=== PATIENT | male | born 1990 | race American Indian/Alaskan Native ===

== ENCOUNTER 2016-07-27 23:19 | Emergency (ER) | payer OTHER ==
[2016-07-27 23:31] VITALS: BP 129/85
--- NOTE | 2016-07-28 00:06 | Emergency Department Report ---
HPI - General Chief Complaint: Dental/Oral Time Seen by Provider: 07/28/16 00:05 - HPI HPI: Patient here complaining of pain to lower gums 3 days. She denies any fever or chills. Denies any injury to gum. He said he noticed redness and swelling to his gum. ED Past Medical Hx - Past Medical History Previous Medical History?: No - Surgical History Past Surgical History?: No - Family History Family history: no significant - Social History Smoking Status: Former Smoker Substance Use Type: None - Medications Home Medications: Home Medications Medication Instructions Recorded Confirmed Last Taken Type Ciprofloxacin HCl [Cipro] 500 mg PO Q12H #14 tab 06/13/[address] [Voltaren Dr] 75 mg PO Q12H #20 tablet 06/13/14 Unknown Rx HYDROcodone/APAP 5-325 [Ramsay 1 each PO Q6HR PRN #12 tablet 06/13/14 Unknown Rx 5-325 mg TAB] Acetaminophen/Codeine [Tylenol #3] 1 tab PO Q6H PRN #12 tab 07/28/16 Unknown Rx Amoxicillin [Amoxicillin TAB] 875 mg PO BID #20 tablet 07/28/16 Unknown Rx ED Review of Systems ROS: Stated complaint: MOUTH PAIN Other details as noted in HPI Comment: All other systems reviewed and negative Constitutional: denies: chills, fever ENT: dental pain (gum pain). denies: ear pain, throat pain, congestion Respiratory: no symptoms reported Cardiovascular: denies: chest pain, palpitations, edema, syncope Gastrointestinal: denies: abdominal pain, nausea, vomiting, diarrhea Musculoskeletal: denies: back pain, arthralgia Skin: denies: rash Neurological: denies: headache Physical Exam - Physical Exam Vital Signs: Vital Signs 07/27/16 23:29 Temperature 97.5 F L Pulse Rate 57 L Respiratory 18 Rate Blood Pressure 129/85 O2 Sat by Pulse 99 Oximetry General: This is a 26-year-old male well-nourished well-developed in no acute distress. Physical Exam: Head: Normocephalic atraumatic Mouth: Moist, no pharyngeal exudate or erythema. Uvula is midline and oral airway is patent. Positive gingival enlargement and dental tenderness around tooth #20 3/24/25 and 26. Oral hygiene and multiple dental caries. No abscess noted. No facial swelling. No peritonsillar abscesses. Neck: Supple, no C-spine tenderness, no tracheal deviation. Nontender to palpate. no adenopathy Ears: Bilateral TMs pearly garcia.bilateral EAC without any redness swelling or drainage Eyes: Bilateral pupils equal and reactive to light, bilateral EOM intact. Bilateral sclera and conjunctiva without injection. Normal accommodation Nose: Mucosa moist, normal mucosa .maxillary and frontal sinus non-tender to palpate. Lungs: Clear to auscultate bilaterally no rhonchi wheezes or rales. Normal work of breathing extremity; No CCE. +2 pulses. No neurovascular compromise Cardiovascular: S1-S2, regular rate rhythm. No murmurs. Skin: clean Dry and intact no rash no lesions Psych: Normal mood and behavior ED Course Vital Signs 07/27/16 23:29 Temperature 97.5 F L Pulse Rate 57 L Respiratory 18 Rate Blood Pressure 129/85 O2 Sat by Pulse 99 Oximetry - Reevaluation(s) Reevaluation #1: 07/28/16 00:30 Uneventful ED stay ED Medical Decision Making - Medical Decision Making ED course: I discussed with patient that he has inflammation of his gum which is called gingivitis. Aggressive him that it provided that he follow-up with a dentist as this can become worst. I instructed patient to follow up with dentist refer to discharge instruction paperwork. Also discussed with him treatment plan and he voiced understanding. Condition discharged home with prescription for Tylenol No. 3 and amoxicillin. Critical care attestation.: If time is entered above; I have spent that time in minutes in the direct care of this critically ill patient, excluding procedure time. ED Disposition Clinical Impression: Gingivitis, Dental caries, Mouth pain Disposition: DISCHARGED TO HOME OR SELFCARE Is pt being admited?: No Does the pt Need Aspirin: No Condition: Stable Instructions: Gingivitis (ED), Dental Caries (ED) Additional Instructions: Follow-up with dentist that we'll refer to. Please Use mouth wash and floss on a daily basis. He is taking antibiotics as prescribed. Tylenol 3 will cause drowsiness so please do not operate any heavy machinery or drive motor vehicle while on Tylenol #3 Prescriptions: Acetaminophen/Codeine [Tylenol #3] 1 tab PO Q6H PRN #12 tab PRN Reason: Pain Amoxicillin [Amoxicillin TAB] 875 mg PO BID #20 tablet Referrals: [facility] [Outside] - 07/30/16 Forms: Accompanied Note, Work/School Release Form(ED)
== END 2016-07-28 00:45 | disposition home or self-care (01) ==
LOC: ED 07-28 00:18
DX: K05.10 Chronic gingivitis, plaque induced (principal); K02.9 Dental caries, unspecified; K13.79 Other lesions of oral mucosa; Z87.891 Personal history of nicotine dependence
CPT/HCPCS: 99282

== ENCOUNTER 2018-03-04 06:15 | Emergency (ER) | payer OTHER ==
[2018-03-04 06:31] VITALS: BP 143/94
--- NOTE | 2018-03-04 07:17 | Cat Scan Report ---
FINAL REPORT PROCEDURE: CT HEAD/BRAIN WO CON TECHNIQUE: Computerized tomography of the head was performed without contrast material. HISTORY: headache COMPARISON: No prior studies are available for comparison. FINDINGS: Skull and scalp: Normal. Paranasal sinuses: Normal. Ventricles and subarachnoid spaces: Normal. Cerebrum: No evidence of hemorrhage, acute infarction or mass . Cerebellum and brainstem: No evidence of hemorrhage, acute infarction or mass. Vasculature: Normal. Comments: None. IMPRESSION: Normal Examination
--- NOTE | 2018-03-04 08:32 | Emergency Department Report ---
ED Headache HPI - General Chief Complaint: Headache Stated Complaint: HEADACHE Time Seen by Provider: 03/04/18 08:02 Source: patient Exam Limitations: no limitations - History of Present Illness Initial Comments: This is a 27-year-old -[place] male who presents with headache for 8-9 days. Patient states she is feeling pressure at times in os Cipro area or frontal area. He took Tylenol once with no improvement of symptoms. Patient states now he is hearing ringing in both ears and pain. She denies nausea or vomiting or fever. He admits he was sick a few weeks ago but does not believe he caught anything from her. Patient denies chest pain, shortness of breath, visual changes, and vertigo. Timing/Duration: 1 week Quality: constant, throbbing Head Injury Location: frontal, occipital Recent Head Trauma: no recent headache/trauma Associated Symptoms: other (tendinitis and bilateral ear pain) Allergies/Adverse Reactions: Allergies No Known Allergies Allergy (Verified 06/12/14 22:27) Home Medications: Ambulatory Orders Ciprofloxacin HCl [Cipro] 500 mg PO Q12H #14 tab 06/13/[address] [Voltaren Dr] 75 mg PO Q12H #20 tablet 06/13/14 HYDROcodone/APAP 5-325 [Goshen 5-325 mg TAB] 1 each PO Q6HR PRN #12 tablet Acetaminophen/Codeine [Tylenol #3] 1 tab PO Q6H PRN #12 tab 07/28/16 Amoxicillin [Amoxicillin TAB] 875 mg PO BID #20 tablet 07/28/16 Amoxicillin 500 mg PO BID #20 capsule 03/04/18 Ibuprofen [Motrin 800 MG tab] 800 mg PO Q8HR PRN #15 tablet 03/04/18 ED Review of Systems ROS: Stated complaint: HEADACHE Other details as noted in HPI Constitutional: denies: chills, fever ENT: ear pain (bilateral ear pain with tinnitus), congestion. denies: throat pain, dental pain, hearing loss, epistaxis Respiratory: denies: cough, shortness of breath, wheezing Cardiovascular: denies: chest pain, palpitations Gastrointestinal: denies: abdominal pain, nausea, diarrhea Skin: denies: rash, lesions Neurological: headache. denies: weakness, paresthesias Psychiatric: denies: anxiety, depression ED Past Medical Hx - Past Medical History Previous Medical History?: No - Surgical History Past Surgical History?: No - Social History Smoking Status: Current Every Day Smoker Substance Use Type: Marijuana - Medications Home Medications: Home Medications Medication Instructions Recorded Confirmed Last Taken Type Ciprofloxacin HCl [Cipro] 500 mg PO Q12H #14 tab 06/13/[address] [Voltaren Dr] 75 mg PO Q12H #20 tablet 06/13/14 Unknown Rx HYDROcodone/APAP 5-325 [[place] 1 each PO Q6HR PRN #12 tablet 06/13/14 Unknown Rx 5-325 mg TAB] Acetaminophen/Codeine [Tylenol #3] 1 tab PO Q6H PRN #12 tab 07/28/16 Unknown Rx Amoxicillin [Amoxicillin TAB] 875 mg PO BID #20 tablet 07/28/16 Unknown Rx Amoxicillin 500 mg PO BID #20 capsule 03/04/18 Unknown Rx Ibuprofen [Motrin 800 MG tab] 800 mg PO Q8HR PRN #15 tablet 03/04/18 Unknown Rx ED Physical Exam - General Limitations: No Limitations General appearance: alert, in no apparent distress - ENT ENT exam: Present: mucous membranes moist, other (turbinates are mildly congested with clear discharge). Absent: normal orophraynx (erythematous posterior pharynx), TM's normal bilaterally (erythematous, bulging right TM, non -mobile, tender) - Respiratory Respiratory exam: Present: normal lung sounds bilaterally. Absent: respiratory distress - Cardiovascular Cardiovascular Exam: Present: regular rate, normal rhythm. Absent: systolic murmur, diastolic murmur, rubs, gallop - GI/Abdominal GI/Abdominal exam: Present: soft, normal bowel sounds - Neurological Exam Neurological exam: Present: alert, oriented X3 - Psychiatric Psychiatric exam: Present: normal affect, normal mood - Skin Skin exam: Present: warm, dry, intact, normal color. Absent: rash ED Course Vital Signs 03/04/18 06:23 Temperature 98.3 F Pulse Rate 62 Respiratory 16 Rate Blood Pressure 143/94 O2 Sat by Pulse 100 Oximetry ED Medical Decision Making - Radiology Data Radiology results: report reviewed, image reviewed interpreted by me: FINAL REPORT PROCEDURE: CT HEAD/BRAIN WO CON TECHNIQUE: Computerized tomography of the head was performed without contrast material. HISTORY: headache COMPARISON: No prior studies are available for comparison. FINDINGS: Skull and scalp: Normal. Paranasal sinuses: Normal. Ventricles and subarachnoid spaces: Normal. Cerebrum: No evidence of hemorrhage, acute infarction or mass . Cerebellum and brainstem: No evidence of hemorrhage, acute infarction or mass. Vasculature: Normal. Comments: None. IMPRESSION: Normal Examination - Medical Decision Making Patient is stable and was examined by me. Vitals normal. CT of head without contrast obtained and dictated by radiologist. Physical assessment susceptible of serous otitis media of left ear. Start amoxicillin and ibuprofen for pain. Discussed plan with patient who agreed with plan. Discharged home in stable condition. Follow up with PCP in 24-72 hours. Critical care attestation.: If time is entered above; I have spent that time in minutes in the direct care of this critically ill patient, excluding procedure time. ED Disposition Clinical Impression: Tinnitus of both ears, Otalgia of both ears Migraine headache without aura Qualifiers: Status migrainosus presence: with status migrainosus Intractability: not intractable Qualified Code(s): G43.001 - Migraine without aura, not intractable , with status migrainosus Otitis media of left ear Qualifiers: Otitis media type: suppurative Chronicity: acute Recurrence: not specified as recurrent Spontaneous tympanic membrane rupture: without spontaneous rupture Qualified Code(s): H66.002 - Acute suppurative otitis media without spontaneous rupture of ear drum, left ear Disposition: DC- TO HOME OR SELFCARE Is pt being admited?: No Does the pt Need Aspirin: No Condition: Stable Instructions: Otitis Media (ED), Migraine Headache (ED) Additional Instructions: Give tylenol or ibuprofen for pain every 6-8 hours. Take antibiotics as prescribed to avoid recurrence of the ear infection. Avoid high altitudes, may worsen the pain during ear infection. If symptoms do not improve within 2 to 3 days, then follow up with primary care provider. Prescriptions: Amoxicillin 500 mg PO BID #20 capsule Ibuprofen [Motrin 800 MG tab] 800 mg PO Q8HR PRN #15 tablet PRN Reason: Pain , Severe (7-10) Referrals: [facility] [place] [Outside] - 3-5 Days [facility] [Outside] - 3-5 Days [facility] [Outside] - 3-5 Days Forms: Work/School Release Form(ED) Time of Disposition: 08:57 Print Language: VENEZUELAN
[2018-03-04] MEDS ORDERED: TORADOL IM ONE (08:59)
== END 2018-03-04 09:25 | disposition home or self-care (01) ==
LOC: ED 06:15
DX: G43.001 Migraine without aura, not intractable, with status migrainosus (principal); H66.002 Acute suppurative otitis media without spontaneous rupture of ear drum, left ear; H92.01 Otalgia, right ear; F12.10 Cannabis abuse, uncomplicated
CPT/HCPCS: 70450; 96372; 99283; J1885

== ENCOUNTER 2018-05-06 19:30 | Emergency (ER) | payer OTHER ==
[2018-05-06 19:59] VITALS: BP 131/71
--- NOTE | 2018-05-06 21:40 | Emergency Department Report ---
ED ENT HPI - General Chief complaint: Earache Stated complaint: BILATERAL EARACHE Time Seen by Provider: 05/06/18 21:33 Source: patient Mode of arrival: Ambulatory Limitations: No Limitations - History of Present Illness Initial comments: This is a 28-year-old -[place] Citizen male who presents with bilateral ear pain for 1 month. Patient states he was seen in the emergency room and given amoxicillin for otitis media which improved symptoms for a few weeks. Patient states symptoms are 2 weeks ago he went to [facility] and given ear drops which have not improved symptoms. 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 Patient reports there is ringing in both ears that are intermittent in both ears. He denies chest pain, shortness of breath, fever, drainage, or dizziness. MD complaint: ear pain Onset/Timin -: month(s) Location: R ear, L ear Severity: severe Severity scale (0 -10): 8 Quality: aching Consistency: intermittent Improves with: none Worsens with: swallowing Associated Symptoms: tinnitus. denies: fever, cough, gum swelling, toothache, pain with swallowing, sore throat, hearing loss, discharge from ear, rhinorrhea - Related Data Previous Rx's Medication Instructions Recorded Last Taken Type Ciprofloxacin HCl [Cipro] 500 mg PO Q12H #14 tab 06/13/[address] [Aden Walsh] 75 mg PO Q12H #20 tablet 06/13/14 Unknown Rx HYDROcodone/APAP 5-325 [Lenora 1 each PO Q6HR PRN #12 tablet 06/13/14 Unknown Rx 5-325 mg TAB] Acetaminophen/Codeine [Tylenol #3] 1 tab PO Q6H PRN #12 tab 07/28/16 Unknown Rx Amoxicillin [Amoxicillin TAB] 875 mg PO BID #20 tablet 07/28/16 Unknown Rx Amoxicillin 500 mg PO BID #20 capsule 03/04/18 Unknown Rx Ibuprofen [Motrin 800 MG tab] 800 mg PO Q8HR PRN #15 tablet 03/04/18 Unknown Rx Azithromycin [Zithromax Z-VICKI] 250 mg PO DAILY #6 tablet 05/06/18 Unknown Rx Allergies Allergy/AdvReac Type Severity Reaction Status Date / Time No Known Allergies Allergy Verified 06/12/14 22:27 ED Dental HPI - General Chief complaint: Earache Stated complaint: BILATERAL EARACHE Time Seen by Provider: 05/06/18 21:33 Source: patient Mode of arrival: Ambulatory Limitations: No Limitations - Related Data Previous Rx's Medication Instructions Recorded Last Taken Type Ciprofloxacin HCl [Cipro] 500 mg PO Q12H #14 tab 06/13/[address] [Aden Walsh] 75 mg PO Q12H #20 tablet 06/13/14 Unknown Rx HYDROcodone/APAP 5-325 [Lenora 1 each PO Q6HR PRN #12 tablet 06/13/14 Unknown Rx 5-325 mg TAB] Acetaminophen/Codeine [Tylenol #3] 1 tab PO Q6H PRN #12 tab 07/28/16 Unknown Rx Amoxicillin [Amoxicillin TAB] 875 mg PO BID #20 tablet 07/28/16 Unknown Rx Amoxicillin 500 mg PO BID #20 capsule 03/04/18 Unknown Rx Ibuprofen [Motrin 800 MG tab] 800 mg PO Q8HR PRN #15 tablet 03/04/18 Unknown Rx Azithromycin [Zithromax Z-VICKI] 250 mg PO DAILY #6 tablet 05/06/18 Unknown Rx Allergies Allergy/AdvReac Type Severity Reaction Status Date / Time No Known Allergies Allergy Verified 06/12/14 22:27 ED Review of Systems ROS: Stated complaint: BILATERAL EARACHE Other details as noted in HPI Constitutional: denies: chills, fever ENT: ear pain (bilateral). denies: throat pain Respiratory: denies: cough, shortness of breath, wheezing Cardiovascular: denies: chest pain, palpitations Gastrointestinal: denies: abdominal pain, nausea, diarrhea Neurological: denies: headache, weakness, paresthesias Psychiatric: denies: anxiety, depression ED Past Medical Hx - Past Medical History Previous Medical History?: No - Surgical History Past Surgical History?: No - Social History Smoking Status: Light Tobacco Smoker Substance Use Type: Alcohol - Medications Home Medications: Home Medications Medication Instructions Recorded Confirmed Last Taken Type Ciprofloxacin HCl [Cipro] 500 mg PO Q12H #14 tab 06/13/14 Unknown Rx Diclofenac [Aden Walsh] 75 mg PO Q12H #20 tablet 06/13/14 Unknown Rx HYDROcodone/APAP 5-325 [Lenora 1 each PO Q6HR PRN #12 tablet 06/13/14 Unknown Rx 5-325 mg TAB] Acetaminophen/Codeine [Tylenol #3] 1 tab PO Q6H PRN #12 tab 07/28/16 Unknown Rx Amoxicillin [Amoxicillin TAB] 875 mg PO BID #20 tablet 07/28/16 Unknown Rx Amoxicillin 500 mg PO BID #20 capsule 03/04/18 Unknown Rx Ibuprofen [Motrin 800 MG tab] 800 mg PO Q8HR PRN #15 tablet 03/04/18 Unknown Rx Azithromycin [Zithromax Z-VICKI] 250 mg PO DAILY #6 tablet 05/06/18 Unknown Rx ED Physical Exam - General Limitations: No Limitations General appearance: alert, in no apparent distress - ENT ENT exam: Present: normal orophraynx, mucous membranes moist, normal external ear exam. Absent: TM's normal bilaterally (bulging erythematous tympanic membranes bilaterally) - Neck Neck exam: Present: normal inspection - Respiratory Respiratory exam: Present: normal lung sounds bilaterally. Absent: respiratory distress - Cardiovascular Cardiovascular Exam: Present: regular rate, normal rhythm. Absent: systolic murmur, diastolic murmur, rubs, gallop - GI/Abdominal GI/Abdominal exam: Present: soft, normal bowel sounds - Neurological Exam Neurological exam: Present: alert, oriented X3 - Psychiatric Psychiatric exam: Present: normal affect, normal mood - Skin Skin exam: Present: warm, dry, intact, normal color. Absent: rash ED Course Vital Signs 05/06/18 19:55 Temperature 99.2 F Pulse Rate 85 Respiratory 18 Rate Blood Pressure 131/71 O2 Sat by Pulse 96 Oximetry ED Medical Decision Making - Medical Decision Making Patient is stable and was examined by me. Vitals normal. Physical assessment susceptible of serous otitis media of both ears. Patient completed amoxicillin 30 days ago and symptoms return. Due to a lack of improvement of patient's condition and will start Z-Vicki. Patient instructed to take Tylenol or ibuprofen for pain. Discharged home in stable condition. Referral to ENT. Follow up with PCP in 24-72 hours. Critical care attestation.: If time is entered above; I have spent that time in minutes in the direct care of this critically ill patient, excluding procedure time. ED Disposition Clinical Impression: Acute pain of both ears Otitis media Qualifiers: Otitis media type: suppurative Chronicity: acute Laterality: bilateral Recurrence: recurrent Spontaneous tympanic membrane rupture: without spontaneous rupture Qualified Code(s): H66.006 - Acute suppurative otitis media without spontaneous rupture of ear drum, recurrent, bilateral Disposition: DC-01 TO HOME OR SELFCARE Is pt being admited?: No Does the pt Need Aspirin: No Condition: Stable Instructions: Otitis Media (ED) Additional Instructions: Give Tylenol or ibuprofen for pain every 6-8 hours. Take antibiotics as prescribed to avoid recurrence of the ear infection. Avoid high altitudes, may worsen the pain during ear infection. If symptoms do not improve within 2 to 3 days, then follow up with Software Developer. Prescriptions: Azithromycin [Zithromax Z-VICKI] 250 mg PO DAILY #6 tablet Referrals: [facility] [Provider Group] [email or web address] - 3-5 Days [facility] [Outside] - 3-5 Days Forms: Work/School Release Form(ED) Time of Disposition: 21:47
== END 2018-05-06 21:59 | disposition home or self-care (01) ==
LOC: ED 19:30
DX: H66.006 Acute suppurative otitis media without spontaneous rupture of ear drum, recurrent, bilateral (principal); F17.200 Nicotine dependence, unspecified, uncomplicated
CPT/HCPCS: 99282